=== PATIENT | female | born 1965 | race Caucasian/White ===

== ENCOUNTER 2017-06-24 12:03 | Emergency (ER) | payer BC, MEDICAID ==
[2017-06-24 12:38] VITALS: BP 151/86
[2017-06-24] MEDS ORDERED: diphenhydrAMINE 50 MG/ML SDV IVPUSH ONE (13:15)
[2017-06-24] MEDS ORDERED: Prochlorperazine 10 MG/2 ML SDV IVPUSH ONE (13:15)
[2017-06-24] MEDS ORDERED: Ketorolac 30 MG/ML SDV IVPUSH ONE (13:15)
[2017-06-24] MEDS ORDERED: Sodium Chloride 0.9% 10 ML Syringe FLUSH PRN (13:15)
[2017-06-24] MEDS ORDERED: Sodium Chloride 0.9% 1,000 ML IV SCH (13:15)
--- NOTE | 2017-06-24 13:22 | EDM.PDOC ---
ED HPI GENERAL MEDICAL PROBLEM - General Chief Complaint: Back Pain or Injury Stated Complaint: BACK SPASMS Time Seen by Provider: 06/24/17 12:55 Source of Information: Reports: Patient, Provider, RN Notes Reviewed History Limitations: Reports: No Limitations - History of Present Illness INITIAL COMMENTS - FREE TEXT/NARRATIVE: 51-year-old female presents emergency department today complaint of migraine type headache and back spasms she does have a history of chronic back pain follows at the pain clinic is on a pain contract was evaluated by her primary care this morning. I also discussed the case with Dr. Arellano her primary care. Inform me that she is currently out of her narcotic medications she does have new prescriptions written for but her insurance will not fill untell end of the month. Her main complaint is migraine type headache which is typical for her she does have photophobia and nausea usually takes triptan which has not provided any relief Back Pain Score (Numeric/FACES): 9 - Related Data Allergies Allergy/AdvReac Type Severity Reaction Status Date / Time iron Allergy Rash Verified 06/24/17 12:38 Sulfa (Sulfonamide Allergy Rash Verified 06/24/17 12:38 Antibiotics) piroxicam AdvReac Vomiting Verified 06/24/17 12:38 Home Meds: Home Meds Hydrocodone/Acetaminophen [[place] 10-325] 1 - 2 tab PO Q6HR PRN 03/04/13 [History ] Multivitamin with Minerals [Multiple Vitamin] 1 tab PO DAILY 03/04/13 [History] Spironolactone [Aldactone] 25 mg PO DAILY 03/04/13 [History] Vitamin B Complex [B Complex] 1 mg PO DAILY 03/04/13 [History] ZOLMitriptan [Zomig] 2.5 mg PO ASDIRECTED PRN 05/26/13 [History] Carisoprodol [Soma] 350 mg PO TID PRN 06/22/14 [History] Docusate Sodium/Sennosides [Senokot-S] 1 - 2 each PO BEDTIME PRN #100 tablet [Rx] Acetaminophen/Caffeine [Excedrin Tension Headache] 1 tab PO BID PRN 03/08/15 [ History] Naproxen Sodium [Aleve] 440 mg PO BID PRN 03/08/15 [History] Magnesium Oxide 400 mg PO DAILY 06/05/15 [History] Calcium+Iron 1 tab PO DAILY 11/06/15 [History] Gabapentin [Gabapentin] 100 mg PO BID 11/17/15 [History] Past Medical History HEENT History: Reports: Impaired Vision Other HEENT History: wears contacts Cardiovascular History: Reports: Heart Murmur, Hypertension, Other (See Below) Other Cardiovascular History: rhuematic fever hx, leg edema Respiratory History: Reports: Bronchitis, Recurrent Gastrointestinal History: Reports: Cholelithiasis, Diverticulosis Other Gastrointestinal History: diverticulosis on ct CORN BREEDER History: Reports: , Other (See Below) Other OB/BYN History: preeclamsia x2 pregnancies Musculoskeletal History: Reports: Arthritis, Back Pain, Chronic, Fracture, Other (See Below) Other Musculoskeletal History: Previous lumbar decompression L4-L5. Multiple back injections, epidurals, nerve tip ablation. rotator cuff surgery .Laser surgery on back Nov Neurological History: Reports: Concussion, Migraines, Seizure Endocrine/Metabolic History: Reports: Diabetes, Type II Hematologic History: Reports: Anemia, Blood Transfusion(s), Iron Deficiency, Other (See Below) Other Hematologic History: antibodies in blood Dermatologic History: Reports: Other (See Below) Other Dermatologic History: cracking of hands - Infectious Disease History Infectious Disease History: Reports: Chicken Pox, Rheumatic Fever - Past Surgical History GI Surgical History: Reports: Bariatric Procedure, Cholecystectomy, Colonoscopy Female Surgical History: Reports: Section, Tubal Ligation Musculoskeletal Surgical History: Reports: Arthroscopic Knee, Shoulder Surgery Social & Family History - Tobacco Use Smoking Status *Q: Never Smoker Second Hand Smoke Exposure: No - Caffeine Use Caffeine Use: Reports: Soda - Alcohol Use Days Per Week of Alcohol Use: 1 Number of Drinks Per Day: 1 Total Drinks Per Week: 1 - Recreational Drug Use Recreational Drug Use: No ED ROS GENERAL - Review of Systems Review Of Systems: See Below Constitutional: Denies: Fever, Chills HEENT: Reports: Eye Pain Respiratory: Reports: No Symptoms Cardiovascular: Reports: No Symptoms GI/Abdominal: Reports: Nausea : Reports: No Symptoms Musculoskeletal: Reports: Back Pain, Other (Muscle spasms) Skin: Reports: No Symptoms Neurological: Reports: No Symptoms - Physical Exam Exam: See Below Exam Limited By: No Limitations General Appearance: Alert, WD/WN, No Apparent Distress Eye Exam: Bilateral Eye: Normal Fundi, Normal Inspection Respiratory/Chest: No Respiratory Distress Course - Vital Signs Last Recorded V/S: Last Vital Signs Temp 96.5 F 06/24/17 12:35 Pulse 80 06/24/17 12:35 Resp 15 06/24/17 12:35 BP 151/86 H 06/24/17 12:35 Pulse Ox 99 06/24/17 12:35 - Orders/Labs/Meds Orders: Active Orders 24 hr Category Date Time Status Peripheral IV Care [RC] . DIRECTED Care 06/24/17 13:16 Active Sodium Chloride 0.9% [Normal Saline] 1,000 ml Med 06/24/17 13:15 Active IV ASDIRECTED Sodium Chloride 0.9% [Saline Flush] Med 06/24/17 13:15 Active 10 ml FLUSH ASDIRECTED PRN Peripheral IV Insertion Adult [OM.PC] Urgent Oth 06/24/17 13:15 Ordered Medication Orders Sodium Chloride (Normal Saline) 1,000 mls @ 500 mls/hr IV ASDIRECTED SHELLI Last Admin: 06/24/17 13:43 Dose: 500 mls/hr Sodium Chloride (Saline Flush) 10 ml FLUSH ASDIRECTED PRN PRN Reason: Keep Vein Open Last Admin: 06/24/17 13:42 Dose: 10 ml Meds: Medications Generic Name Dose Route Start Last Admin Trade Name Freq PRN Reason Stop Dose Admin Sodium Chloride 1,000 mls @ 500 mls/hr 06/24/17 13:15 06/24/17 13:43 Normal Saline IV 500 mls/hr ASDIRECTED SHELLI Administration Sodium Chloride 10 ml 06/24/17 13:15 06/24/17 13:42 Saline Flush FLUSH 10 ml ASDIRECTED PRN Administration Keep Vein Open Discontinued Medications Generic Name Dose Route Start Last Admin Trade Name Freq PRN Reason Stop Dose Admin Carisoprodol 350 mg 06/24/17 13:15 06/24/17 13:44 Soma PO 06/24/17 13:16 350 mg ONETIME ONE Administration Diphenhydramine HCl 25 mg 06/24/17 13:15 06/24/17 13:43 Benadryl IVPUSH 06/24/17 13:16 25 mg ONETIME ONE Administration Ketorolac Tromethamine 30 mg 06/24/17 13:15 06/24/17 13:44 Toradol IVPUSH 06/24/17 13:16 30 mg ONETIME ONE Administration Prochlorperazine Edisylate 5 mg 06/24/17 13:15 06/24/17 13:43 Compazine IVPUSH 06/24/17 13:16 5 mg ONETIME ONE Administration Departure - Departure Time of Disposition: 14:21 Disposition: Home, Self-Care 01 Condition: Good Clinical Impression: Migraine Qualifiers: Migraine type: without aura Status migrainosus presence: without status migrainosus Intractability: not intractable Qualified Code(s): G43.009 - Migraine without aura, not intractable, without status migrainosus - Discharge Information Referrals: Jorge Arellano MD [Primary Care Provider] - Forms: ED Department Discharge Additional Instructions: Continue regular medications, Please followup with your primary care provider in 3-5 days if not better, please call return to the emergency department with worsening of symptoms. - My Orders Last 24 Hours: My Active Orders 06/24/17 13:15 Sodium Chloride 0.9% [Normal Saline] 1,000 ml IV ASDIRECTED Sodium Chloride 0.9% [Saline Flush] 10 ml FLUSH ASDIRECTED PRN Peripheral IV Insertion Adult [OM.PC] Urgent 06/24/17 13:16 Peripheral IV Care [RC] . DIRECTED - Assessment/Plan Last 24 Hours: My Active Orders 06/24/17 13:15 Sodium Chloride 0.9% [Normal Saline] 1,000 ml IV ASDIRECTED Sodium Chloride 0.9% [Saline Flush] 10 ml FLUSH ASDIRECTED PRN Peripheral IV Insertion Adult [OM.PC] Urgent 06/24/17 13:16 Peripheral IV Care [RC] . DIRECTED Plan: Assessment Acuity = acute on chronic Site and laterality = migraine type headache Etiology = unclear etiology Manifestations = none Location of injury = Home Lab values = none Plan She had good improvement with combination Toradol, Benadryl, Compazine and 1 L of lactated Ringer's, 1 doses soma, plan follow-up primary care as needed This note was dictated using [employer] voice recognition software please call with any questions on syntax or yonatan.
== END 2017-06-24 14:37 | disposition home or self-care (01) ==
LOC: JP.ED 12:03
DX: G43.009 Migraine without aura, not intractable, without status migrainosus (principal); I10 Essential (primary) hypertension; E11.9 Type 2 diabetes mellitus without complications; Z98.890 Other specified postprocedural states; Z90.49 Acquired absence of other specified parts of digestive tract; Z98.84 Bariatric surgery status; Z79.899 Other long term (current) drug therapy; Z88.2 Allergy status to sulfonamides; Z88.8 Allergy status to other drugs, medicaments and biological substances
CPT/HCPCS: 99283; A9270; J0780; J1200; J1885; J7040; J7050

== ENCOUNTER 2018-11-16 07:30 | Day surgery (SDC) | payer BC ==
[2018-11-16] MEDS ORDERED: Lactated Ringers 1,000 ML IV SCH (08:15)
[2018-11-16] MEDS ORDERED: Propofol 200 MG/20 ML SDV ONE ×2 (09:15→10:19)
[2018-11-16] MEDS ORDERED: Midazolam 1 MG/ML 2 ML SDV ONE (09:16)
[2018-11-16] MEDS ORDERED: fentaNYL 100 MCG/2 ML SDV ONE (09:16)
[2018-11-16 11:34] VITALS: BP 161/99; PULSE 61
--- NOTE | 2018-11-16 15:22 | OR ---
DATE OF PROCEDURE: 11/16/2018 PREOPERATIVE DIAGNOSIS: Colon cancer screening. POSTOPERATIVE DIAGNOSIS: Diverticulosis. PROCEDURE: Colonoscopy to the cecum. ANESTHESIA: IV anesthesia with monitored anesthesia care. SURGEON: Marquise Wills MD INDICATION: This 53-year-old white female is referred for a colonoscopy. This is her first colonoscopic exam. I counseled her for the procedure including risks and alternatives, and she gave her informed consent to proceed. DESCRIPTION OF PROCEDURE: The patient was placed in the left lateral decubitus position. IV anesthesia was administered by the Anesthesia Service. Time-out was held. A rectal exam was performed, which was unremarkable. The flexible video Olympus colonoscope was introduced through her anus, up her rectum and out her colon all the way to the cecum. En route, we saw a few scattered left-sided diverticula. There was no bleeding or inflammation associated with them. Once the cecum was reached, the scope was slowly withdrawn examining the mucosa throughout. No additional mucosal abnormalities were noted. The scope was retroflexed in the rectum with the distal rectum appearing unremarkable. The scope was straightened and removed. She tolerated the procedure well. Marquise Wills MD /[id number] MTDD
== END 2018-11-16 11:55 | disposition home or self-care (01) ==
LOC: JP.SDS 07:30
PROVIDERS: ATTEND Surgery
DX: Z12.11 Encounter for screening for malignant neoplasm of colon (principal); K57.30 Diverticulosis of large intestine without perforation or abscess without bleeding; K21.9 Gastro-esophageal reflux disease without esophagitis; E66.9 Obesity, unspecified; M19.90 Unspecified osteoarthritis, unspecified site; Z88.2 Allergy status to sulfonamides; Z88.8 Allergy status to other drugs, medicaments and biological substances; Z68.30 Body mass index [BMI] 30.0-30.9, adult
CPT/HCPCS: 45378; J2250; J2704; J3010; J7120

== ENCOUNTER 2021-01-18 17:58 | Emergency (ER) | payer MEDICARE ==
[2021-01-18] MEDS ORDERED: Sodium Chloride 0.9% 10 ML Syringe FLUSH PRN (18:29)
[2021-01-18] MEDS ORDERED: Sodium Chloride 0.9% 1,000 ML IV SCH (18:30)
[2021-01-18 18:53] VITALS: BP 147/89; PULSE 55
--- NOTE | 2021-01-18 19:30 | EDM.PDOC ---
ED HPI GENERAL MEDICAL PROBLEM - General Chief Complaint: General Stated Complaint: MISSED IV APPT TODAY Time Seen by Provider: 01/18/21 18:18 Source of Information: Reports: Patient, Old Records History Limitations: Reports: No Limitations - History of Present Illness INITIAL COMMENTS - FREE TEXT/NARRATIVE: Edson is a 55-year-old female presenting to the ED for evaluation of marked progression and generalized weakness. The patient has a history of gastric bypass with a Ya-en-Y many years ago and is developing significant malabsorption with dangerously low levels of vitamin B12, zinc, vitamin A, 25hydroxy vitamin D3 and 25hydroxy vitamin D2, iron, and copper. She has been receiving infusions of the vitamin B12, vitamin D, and copper this week, but despite this has become increasingly weak. She was scheduled to have a copper infusion today but could not get out of bed and missed that infusion. She does have an appointment tomorrow with a neurologist at [facility] in [place]. She was advised by the clinic to come to the ER for evaluation because of the significant progression of her generalized weakness. Does appear in the [facility] note that she had to have the assist of 2 nurses to make it from the infusion chair to the bathroom and was unable to even pivot on her own. - Related Data Allergies Allergy/AdvReac Type Severity Reaction Status Date / Time iron Allergy Rash Verified 01/18/21 18:24 Sulfa (Sulfonamide Allergy Rash Verified 01/18/21 18:24 Antibiotics) venlafaxine Allergy Itching Verified 01/18/21 18:24 piroxicam AdvReac Vomiting Verified 01/18/21 18:24 Home Meds: Home Meds Multivitamin with Minerals [Multiple Vitamin] 1 tab PO DAILY 03/04/13 [History] Vitamin B Complex [B Complex] 1 tab PO DAILY 03/04/13 [History] ZOLMitriptan [Zomig] 2.5 mg PO ASDIRECTED PRN 05/26/13 [History] Ondansetron [Zofran ODT] 4 - 8 mg PO Q4H PRN 01/20/18 [History] Calcium Citrate/Vitamin D3 [Calcium Citrate - Vit D Tablet] 1 tab PO DAILY 11/16/18 [History] Clotrimazole [Clotrimazole 1%] 1 applic TOP BID 11/16/18 [History] Gabapentin [Neurontin] 300 mg PO ASDIRECTED 11/16/18 [History] Acetaminophen/HYDROcodone [[place] 325-5 MG] 1 tab PO Q6HR PRN 08/05/19 [History] Cyclobenzaprine [Flexeril] 10 mg PO TID PRN 10/03/20 [History] Sennosides/Docusate Sodium [Senna-S 8.6-50 mg Tablet] 2 each PO BID 10/03/20 [History] Past Medical History HEENT History: Reports: Impaired Vision Other HEENT History: wears contacts Cardiovascular History: Reports: Heart Murmur, Hypertension, Other (See Below) Other Cardiovascular History: rhuematic fever hx, leg edema Respiratory History: Reports: Bronchitis, Recurrent Gastrointestinal History: Reports: Cholelithiasis, Chronic Constipation, Diverticulosis Other Gastrointestinal History: diverticulosis on ct Genitourinary History: Reports: None PHARMACOVIGILANCE SCIENTIST History: Reports: , Other (See Below) Other PHARMACOVIGILANCE SCIENTIST History: preeclamsia x2 pregnancies Musculoskeletal History: Reports: Arthritis, Back Pain, Chronic, Fracture, Other (See Below) Other Musculoskeletal History: Previous lumbar decompression L4-L5. Multiple back injections, epidurals, nerve tip ablation. rotator cuff surgery .Laser surgery on back Nov Neurological History: Reports: Concussion, Migraines, Seizure Psychiatric History: Reports: None Endocrine/Metabolic History: Reports: Diabetes, Type II, Obesity/BMI 30+ Hematologic History: Reports: Anemia, Blood Transfusion(s), Iron Deficiency, Other (See Below) Other Hematologic History: antibodies in blood Immunologic History: Reports: None Oncologic (Cancer) History: Reports: None Dermatologic History: Reports: Cellulitis, Other (See Below) Other Dermatologic History: cracking of hands - Infectious Disease History Infectious Disease History: Reports: Chicken Pox, Rheumatic Fever - Past Surgical History HEENT Surgical History: Reports: Tonsillectomy GI Surgical History: Reports: Bariatric Procedure, Cholecystectomy, Colonoscopy, EGD Other GI Surgeries/Procedures: RNY Female Surgical History: Reports: Section, Tubal Ligation Neurological Surgical History: Reports: Other (See Below) Other Neurological Surgeries/Procedures: spinal stimulator Musculoskeletal Surgical History: Reports: Arthroscopic Knee, Shoulder Surgery Social & Family History - Family History Family Medical History: No Pertinent Family History - Tobacco Use Tobacco Use Status *Q: Never Tobacco User - Caffeine Use Caffeine Use: Reports: None - Recreational Drug Use Recreational Drug Use: No ED ROS GENERAL - Review of Systems Review Of Systems: See Below Constitutional: Reports: Weakness (Progressive generalized weakness), Fatigue, Decreased Appetite HEENT: Reports: No Symptoms Respiratory: Reports: No Symptoms Cardiovascular: Reports: Dyspnea on Exertion Endocrine: Reports: Fatigue GI/Abdominal: Reports: Anorexia, Decreased Appetite, Other (History of gastric bypass with a Ya-en-Y) : Reports: No Symptoms Musculoskeletal: Reports: No Symptoms Skin: Reports: Pallor Neurological: Reports: Confusion (Episodes of confusion), Difficulty Walking (Unable to stand or walk), Weakness (Profound generalized weakness) Psychiatric: Reports: Anxiety, Confusion Hematologic/Lymphatic: Reports: Anemia ED EXAM, GENERAL - Physical Exam Exam: See Below Exam Limited By: No Limitations General Appearance: Alert, Anxious, Lethargic, Mild Distress, Cachetic Eye Exam: Bilateral Eye: EOMI, PERRL Nose: Normal Inspection Throat/Mouth: No Airway Compromise, Other (Very dry mucous membranes) Head: Atraumatic, Normocephalic Neck: Normal Inspection, Supple, Lymphadenopathy (R) (Shotty right anterior cervical adenopathy). No: Lymphadenopathy (L) Respiratory/Chest: No Respiratory Distress, Lungs Clear, Normal Breath Sounds Cardiovascular: Normal Peripheral Pulses, Regular Rate, Rhythm, No Murmur Peripheral Pulses: 2+: Radial (L), Radial (R), Posterior Tibial (L), Posterior Tibial (R) GI/Abdominal: Soft, Abnormal Bowel Sounds (Diminished bowel sounds). No: Guarding, Rebound Extremities: Pedal Edema (Lymphedema in the legs) Neurological: Alert, Oriented, Normal Cognition, Abnormal Reflexes (Markedly diminished reflexes in both the lower and upper extremities.), Sensory/Motor Deficit (Significant bilateral upper extremity weakness only able to keep the arms off the bed for 4 seconds before drifting downward. Patient is unable to lift her legs off the bed.) Psychiatric: Anxious Skin Exam: Warm, No Rash, Pallor Course - Vital Signs Last Recorded V/S: Last Vital Signs Temp 34.1 C L 01/18/21 18:22 Pulse 55 L 01/18/21 18:53 Resp 16 01/18/21 18:22 BP 147/89 H 01/18/21 18:53 Pulse Ox 98 01/18/21 18:53 - Orders/Labs/Meds Orders: Active Orders 24 hr Category Date Time Status COPPER, SERUM OR PLASMA Stat Lab 01/18/21 18:54 Received VITAMIN A, SERUM Stat Lab 01/18/21 18:54 Received VITAMIN D,25-HYDROXY [CHEM] Stat Lab 01/18/21 18:55 Received ZINC, PLASMA OR SERUM Stat Lab 01/18/21 18:54 Received Sodium Chloride 0.9% [Normal Saline] 1,000 ml Med 01/18/21 18:30 Active IV ASDIRECTED Sodium Chloride 0.9% [Saline Flush] Med 01/18/21 18:29 Active 10 ml FLUSH ASDIRECTED PRN Saline Lock Insert [OM.PC] Routine Oth 01/18/21 18:29 Ordered Medication Orders Sodium Chloride (Normal Saline) 1,000 mls @ 999 mls/hr IV ASDIRECTED SHELLI Last Admin: 01/18/21 18:59 Dose: 999 mls/hr Documented by: JONATHAN Sodium Chloride (Sodium Chloride 0.9% 10 Ml Syringe) 10 ml FLUSH ASDIRECTED PRN PRN Reason: Keep Vein Open Last Admin: 01/18/21 19:00 Dose: 10 ml Documented by: JONATHAN Labs: Laboratory Tests 01/18/21 01/18/21 01/18/21 Range/Units 18:53 18:53 18:54 WBC 2.1 L (4.5-11.0) K/uL RBC 3.74 (3.30-5.50) M/uL Hgb 9.9 L (12.0-15.0) g/dL Hct 33.7 L (36.0-48.0) % MCV 90 (80-98) fL MCH 27 (27-31) pg MCHC 29 L (32-36) % Plt Count 122 L (150-400) K/uL Neut % (Auto) 67.7 H (36-66) % Lymph % (Auto) 17.1 L (24-44) % [place] % (Auto) 10.4 H (2-6) % Eos % (Auto) 4.3 H (2-4) % Baso % (Auto) 0.5 (0-1) % ESR 10 (0-25) mm/hr Sodium (140-148) mmol/L Potassium (3.6-5.2) mmol/L Chloride (100-108) mmol/L Carbon Dioxide (21-32) mmol/L Anion Gap (5.0-14.0) mmol/L BUN (7-18) mg/dL Creatinine (0.6-1.0) mg/dL Est Cr Clr Drug Dosing mL/min Estimated GFR (MDRD) (>60) Glucose (74-106) mg/dL Lactic Acid (0.4-2.0) mmol/L Calcium (8.5-10.1) mg/dL Iron (50-170) ug/dL TIBC (250-450) ug/dl % Saturation (20-55) % Total Bilirubin (0.2-1.0) mg/dL AST (15-37) U/L ALT (12-78) U/L Alkaline Phosphatase (46-116) U/L C-Reactive Protein (0.0-0.3) mg/dL Total Protein (6.4-8.2) g/dL Albumin (3.4-5.0) g/dL Globulin (2.3-3.5) g/dL Albumin/Globulin Ratio (1.2-2.2) Vitamin B12 (193-986) pg/ml Folate (8.6-58.9) ng/ml TSH, Ultra Sensitive (0.358-3.740) uIU/mL Urine Color Yellow (YELLOW) Urine Appearance Clear (CLEAR) Urine pH 6.0 (5.0-8.0) Ur Specific [place] 1.025 (1.008-1.030) Urine Protein Negative (NEGATIVE) mg/dL Urine Glucose (UA) Negative (NEGATIVE) mg/dL Urine Ketones Negative (NEGATIVE) mg/dL Urine Occult Blood Negative (NEGATIVE) Urine Nitrite Negative (NEGATIVE) Urine Bilirubin Negative (NEGATIVE) Urine Urobilinogen 0.2 (0.2-1.0) EU/dL Ur Leukocyte Esterase Negative (NEGATIVE) Urine RBC 0-5 (0-5) Urine WBC 0-5 (0-5) Ur Epithelial Cells Rare Amorphous Sediment Few Urine Bacteria Few Urine Mucus Not seen SARS-CoV-2 RNA ([place]) Negative (NEGATIVE) 01/18/21 01/18/21 01/18/21 Range/Units 18:54 18:54 18:54 WBC (4.5-11.0) K/uL RBC (3.30-5.50) M/uL Hgb (12.0-15.0) g/dL Hct (36.0-48.0) % MCV (80-98) fL MCH (27-31) pg MCHC (32-36) % Plt Count (150-400) K/uL Neut % (Auto) (36-66) % Lymph % (Auto) (24-44) % [place] % (Auto) (2-6) % Eos % (Auto) (2-4) % Baso % (Auto) (0-1) % ESR (0-25) mm/hr Sodium 145 (140-148) mmol/L Potassium 3.3 L (3.6-5.2) mmol/L Chloride 109 H (100-108) mmol/L Carbon Dioxide 29 (21-32) mmol/L Anion Gap 10.3 (5.0-14.0) mmol/L BUN 13 D (7-18) mg/dL Creatinine 0.4 L (0.6-1.0) mg/dL Est Cr Clr Drug Dosing 134.55 mL/min Estimated GFR (MDRD) > 60 (>60) Glucose 100 (74-106) mg/dL Lactic Acid 0.5 (0.4-2.0) mmol/L Calcium 9.1 (8.5-10.1) mg/dL Iron 53 (50-170) ug/dL TIBC 408 (250-450) ug/dl % Saturation 13 L (20-55) % Total Bilirubin 0.3 (0.2-1.0) mg/dL AST 170 H D (15-37) U/L ALT 240 H (12-78) U/L Alkaline Phosphatase 105 (46-116) U/L C-Reactive Protein 0.27 (0.0-0.3) mg/dL Total Protein 5.7 L (6.4-8.2) g/dL Albumin 3.0 L (3.4-5.0) g/dL Globulin 2.7 (2.3-3.5) g/dL Albumin/Globulin Ratio 1.1 L (1.2-2.2) Vitamin B12 > 2000 H (193-986) pg/ml Folate > 20.0 (8.6-58.9) ng/ml TSH, Ultra Sensitive (0.358-3.740) uIU/mL Urine Color (YELLOW) Urine Appearance (CLEAR) Urine pH (5.0-8.0) Ur Specific [place] (1.008-1.030) Urine Protein (NEGATIVE) mg/dL Urine Glucose (UA) (NEGATIVE) mg/dL Urine Ketones (NEGATIVE) mg/dL Urine Occult Blood (NEGATIVE) Urine Nitrite (NEGATIVE) Urine Bilirubin (NEGATIVE) Urine Urobilinogen (0.2-1.0) EU/dL Ur Leukocyte Esterase (NEGATIVE) Urine RBC (0-5) Urine WBC (0-5) Ur Epithelial Cells Amorphous Sediment Urine Bacteria Urine Mucus SARS-CoV-2 RNA ([place]) (NEGATIVE) 01/18/21 Range/Units 19:26 WBC (4.5-11.0) K/uL RBC (3.30-5.50) M/uL Hgb (12.0-15.0) g/dL Hct (36.0-48.0) % MCV (80-98) fL MCH (27-31) pg MCHC (32-36) % Plt Count (150-400) K/uL Neut % (Auto) (36-66) % Lymph % (Auto) (24-44) % [place] % (Auto) (2-6) % Eos % (Auto) (2-4) % Baso % (Auto) (0-1) % ESR (0-25) mm/hr Sodium (140-148) mmol/L Potassium (3.6-5.2) mmol/L Chloride (100-108) mmol/L Carbon Dioxide (21-32) mmol/L Anion Gap (5.0-14.0) mmol/L BUN (7-18) mg/dL Creatinine (0.6-1.0) mg/dL Est Cr Clr Drug Dosing mL/min Estimated GFR (MDRD) (>60) Glucose (74-106) mg/dL Lactic Acid (0.4-2.0) mmol/L Calcium (8.5-10.1) mg/dL Iron (50-170) ug/dL TIBC (250-450) ug/dl % Saturation (20-55) % Total Bilirubin (0.2-1.0) mg/dL AST (15-37) U/L ALT (12-78) U/L Alkaline Phosphatase (46-116) U/L C-Reactive Protein (0.0-0.3) mg/dL Total Protein (6.4-8.2) g/dL Albumin (3.4-5.0) g/dL Globulin (2.3-3.5) g/dL Albumin/Globulin Ratio (1.2-2.2) Vitamin B12 (193-986) pg/ml Folate (8.6-58.9) ng/ml TSH, Ultra Sensitive 1.591 (0.358-3.740) uIU/mL Urine Color (YELLOW) Urine Appearance (CLEAR) Urine pH (5.0-8.0) Ur Specific [place] (1.008-1.030) Urine Protein (NEGATIVE) mg/dL Urine Glucose (UA) (NEGATIVE) mg/dL Urine Ketones (NEGATIVE) mg/dL Urine Occult Blood (NEGATIVE) Urine Nitrite (NEGATIVE) Urine Bilirubin (NEGATIVE) Urine Urobilinogen (0.2-1.0) EU/dL Ur Leukocyte Esterase (NEGATIVE) Urine RBC (0-5) Urine WBC (0-5) Ur Epithelial Cells Amorphous Sediment Urine Bacteria Urine Mucus SARS-CoV-2 RNA ([place]) (NEGATIVE) Meds: Medications Generic Name Dose Route Start Last Admin Trade Name Freq PRN Reason Stop Dose Admin Sodium Chloride 1,000 mls @ 999 mls/hr 01/18/21 18:30 01/18/21 18:59 Normal Saline IV 999 mls/hr ASDIRECTED SHELLI Administration Sodium Chloride 10 ml 01/18/21 18:29 01/18/21 19:00 Sodium Chloride 0.9% 10 Ml Syringe FLUSH 10 ml ASDIRECTED PRN Administration Keep Vein Open - Re-Assessments/Exams Free Text/Narrative Re-Assessment/Exam: 01/18/21 21:26 the patient's labs which are troubling with her CBC showing a leukocyte count of 2.1, hemoglobin of 9.9, hematocrit of 33.7 and a platelet count of 122,000. Her comprehensive metabolic panel shows a sodium 145, potassium 3.3, chloride of 109, bicarbonate of 29, BUN of 13 with a creatinine of 0.4 and a glucose of 100. The AST is 170 with an ALT of 240 and alkaline phosphatase of 105. Venous lactic acid is 0.5. Erythrocyte sedimentation rate is 10 with a C-reactive protein of 0.27. The iron is 53 with a TIBC of 408 and a percent saturation of 13. Vitamin B12 is greater than 2000. Folate is greater than 20. TSH is 1.591 and Covid is negative. Urinalysis is also unremarkable. Zinc and calcium are pending as they are send outs. The patient has significant progressive generalized weakness over the course of the last 6 weeks to the point now where she is having difficulty even getting up off the bed. I initially planned on trying to find placement for her at one of the tertiary care centers where neurology would be able to evaluate her more expediently. The patient does have an appointment with [facility] in [place] tomorrow with a neurologist. As this is not an acute weakness, I did discuss with her options including going home in order so that she can make that appointment. Currently there are no beds available at any facility within 100 miles of [place] due to COVID-19. The patient agrees with the thought of going home and following up tomorrow with neurology. I concur that that is probably her best option at this time. Alternatively we would board her in the emergency room and telemetry bed became available which could be anywhere from 12 hours to multiple days given the bed status at the other hospitals. I did discuss with the patient indications to return to the ED for reevaluation. Departure - Departure Time of Disposition: 21:30 Disposition: Home, Self-Care 01 Clinical Impression: Generalized muscle weakness, History of Ya-en-Y gastric bypass Malabsorption Qualifiers: Intestinal malabsorption type: unspecified Qualified Code(s): K90.9 - Intestinal malabsorption, unspecified - Discharge Information Referrals: Jorge Arellano MD [Primary Care Provider] - Forms: ED Department Discharge Care Plan Goals: Follow-up tomorrow with your neurologist at [place]. Sepsis Event Note (ED) - Evaluation Sepsis Screening Result: No Definite Risk - Focused Exam Vital Signs: Vital Signs Temp Pulse Resp BP Pulse Ox 01/18/21 18:53 55 L 147/89 H 98 01/18/21 18:22 34.1 C L 59 L 16 156/84 H 98 01/18/21 18:18 34.1 C L 59 L 16 156/84 H 98 - Problem List & Annotations (1) Generalized muscle weakness SNOMED Code(s): 65747256, 95221920 Code(s): M62.81 - MUSCLE WEAKNESS (GENERALIZED) Status: Acute Priority: High Current Visit: Yes (2) History of Ya-en-Y gastric bypass SNOMED Code(s): 763590980 Code(s): Z98.84 - BARIATRIC SURGERY STATUS Status: Acute Priority: High Current Visit: Yes (3) Malabsorption SNOMED Code(s): 442146261 Code(s): K90.9 - INTESTINAL MALABSORPTION, UNSPECIFIED Status: Acute Priority: High Current Visit: Yes Qualifiers: Intestinal malabsorption type: unspecified Qualified Code(s): K90.9 - Intestinal malabsorption, unspecified - Problem List Review Problem List Initiated/Reviewed/Updated: Yes - My Orders Last 24 Hours: My Active Orders 01/18/21 18:29 Sodium Chloride 0.9% [Saline Flush] 10 ml FLUSH ASDIRECTED PRN Saline Lock Insert [OM.PC] Routine 01/18/21 18:30 Sodium Chloride 0.9% [Normal Saline] 1,000 ml IV ASDIRECTED 01/18/21 18:54 COPPER, SERUM OR PLASMA Stat VITAMIN A, SERUM Stat ZINC, PLASMA OR SERUM Stat 01/18/21 18:55 VITAMIN D,25-HYDROXY [CHEM] Stat - Assessment/Plan Last 24 Hours: My Active Orders 01/18/21 18:29 Sodium Chloride 0.9% [Saline Flush] 10 ml FLUSH ASDIRECTED PRN Saline Lock Insert [OM.PC] Routine 01/18/21 18:30 Sodium Chloride 0.9% [Normal Saline] 1,000 ml IV ASDIRECTED 01/18/21 18:54 COPPER, SERUM OR PLASMA Stat VITAMIN A, SERUM Stat ZINC, PLASMA OR SERUM Stat 01/18/21 18:55 VITAMIN D,25-HYDROXY [CHEM] Stat
== END 2021-01-19 03:26 | disposition home or self-care (01) ==
LOC: JP.ED 17:58
DX: K90.9 Intestinal malabsorption, unspecified (principal); I10 Essential (primary) hypertension; E11.9 Type 2 diabetes mellitus without complications; E66.9 Obesity, unspecified; Z68.23 Body mass index [BMI] 23.0-23.9, adult; Z79.899 Other long term (current) drug therapy; Z91.048 Other nonmedicinal substance allergy status; Z88.2 Allergy status to sulfonamides; Z20.822 Contact with and (suspected) exposure to COVID-19; Z98.84 Bariatric surgery status
CPT/HCPCS: 80053; 81001; 82306; 82525; 82607; 82746; 83550; 83605; 84443; 84590; 84630; 85025; 85651; 86140; 99284; J7030; U0002

== ENCOUNTER 2021-01-20 16:27 | Emergency (ER) | payer MEDICARE ==
--- NOTE | 2021-01-20 17:54 | EDM.PDOC ---
ED HPI GENERAL MEDICAL PROBLEM - General Chief Complaint: General Stated Complaint: MEDICAL VIA [facility] Time Seen by Provider: 01/20/21 18:29 - History of Present Illness INITIAL COMMENTS - FREE TEXT/NARRATIVE: 55 y/o female with a one year history of progressive weakness and confusion. Presents here by EMS. Accompanied by son who provides history. EMS attendants reports house is dirty, unsanitary and rodent infested. Pt unable to walk or transfer without assistance x 1 year. Decreased oral intake x 2 days. Seen here on 01/18. W/U shows leukopenia and elevated transaminase. Hx of hepatic steatosis. [place] problems were complex and in part due to malabsorption. Getting IV infusions of iron, copper and other minerals for one week without improvement. Recommended workup by tertiary care center, but due to bed shortage no acceptance was found within 100 miles of [place]. Pt had neuro appt in on Friday, but missed it due to weakness. Pt is vaccinated for covid and tested negative on 01/18. Treatments AUDIO VISUAL DIRECTOR: Reports: Heat Therapy - Related Data Allergies Allergy/AdvReac Type Severity Reaction Status Date / Time iron Allergy Rash Verified 01/18/21 18:24 Sulfa (Sulfonamide Allergy Rash Verified 01/18/21 18:24 Antibiotics) venlafaxine Allergy Itching Verified 01/18/21 18:24 piroxicam AdvReac Vomiting Verified 01/18/21 18:24 Home Meds: Home Meds Multivitamin with Minerals [Multiple Vitamin] 1 tab PO DAILY 03/04/13 [History] Vitamin B Complex [B Complex] 1 tab PO DAILY 03/04/13 [History] Ondansetron [Zofran ODT] 4 - 8 mg PO Q4H PRN 01/20/18 [History] Calcium Citrate/Vitamin D3 [Calcium Citrate - Vit D Tablet] 1 tab PO DAILY 11/16/18 [History] Clotrimazole [Clotrimazole 1%] 1 applic TOP TID PRN 11/16/18 [History] Gabapentin [Neurontin] 300 mg PO DAILY 11/16/18 [History] Acetaminophen/HYDROcodone [May 325-5 MG] 1 tab PO Q6HR PRN 08/05/19 [History] Cyclobenzaprine [Flexeril] 10 mg PO TID PRN 10/03/20 [History] Sennosides/Docusate Sodium [Senna-S 8.6-50 mg Tablet] 2 tab PO BID 10/03/20 [History] Ergocalciferol (Vitamin D2) [Vitamin D2] 1,250 mcg PO .MWF 01/18/21 [History] Folic Acid 5 mg PO DAILY 01/18/21 [History] Gabapentin [Neurontin] 600 mg PO BEDTIME 01/18/21 [History] ZOLMitriptan [Zomig] 5 mg PO ASDIRECTED PRN 01/18/21 [History] Past Medical History HEENT History: Reports: Impaired Vision Other HEENT History: wears contacts Cardiovascular History: Reports: Heart Murmur, Hypertension, Other (See Below) Other Cardiovascular History: rhuematic fever hx, leg edema Respiratory History: Reports: Bronchitis, Recurrent Gastrointestinal History: Reports: Cholelithiasis, Chronic Constipation, Diverticulosis Other Gastrointestinal History: diverticulosis on ct Genitourinary History: Reports: None COMPUTER SYSTEMS DESIGN ANALYST History: Reports: , Other (See Below) Other COMPUTER SYSTEMS DESIGN ANALYST History: preeclamsia x2 pregnancies Musculoskeletal History: Reports: Arthritis, Back Pain, Chronic, Fracture, Other (See Below) Other Musculoskeletal History: Previous lumbar decompression L4-L5. Multiple back injections, epidurals, nerve tip ablation. rotator cuff surgery 06/08/15.Laser surgery on back Nov Neurological History: Reports: Concussion, Migraines, Seizure Psychiatric History: Reports: None Endocrine/Metabolic History: Reports: Diabetes, Type II, Obesity/BMI 30+ Hematologic History: Reports: Anemia, Blood Transfusion(s), Iron Deficiency, Other (See Below) Other Hematologic History: antibodies in blood Immunologic History: Reports: None Oncologic (Cancer) History: Reports: None Dermatologic History: Reports: Cellulitis, Other (See Below) Other Dermatologic History: cracking of hands - Infectious Disease History Infectious Disease History: Reports: Chicken Pox, Rheumatic Fever - Past Surgical History Head Surgeries/Procedures: Reports: None HEENT Surgical History: Reports: Tonsillectomy Cardiovascular Surgical History: Reports: None Respiratory Surgical History: Reports: None GI Surgical History: Reports: Bariatric Procedure, Cholecystectomy, Colonoscopy, EGD Other GI Surgeries/Procedures: RNY Female Surgical History: Reports: Section, Tubal Ligation Endocrine Surgical History: Reports: None Neurological Surgical History: Reports: Other (See Below) Other Neurological Surgeries/Procedures: spinal stimulator Musculoskeletal Surgical History: Reports: Arthroscopic Knee, Shoulder Surgery Oncologic Surgical History: Reports: None Social & Family History - Family History Family Medical History: No Pertinent Family History - Tobacco Use Tobacco Use Status *Q: Never Tobacco User - Caffeine Use Caffeine Use: Reports: None - Recreational Drug Use Recreational Drug Use: No ED ROS GENERAL - Review of Systems Review Of Systems: See Below Reason Not Obtained: The patient is confused. Constitutional: Reports: Chills, Fatigue, Decreased Appetite. Denies: Fever HEENT: Reports: No Symptoms Respiratory: Reports: No Symptoms Cardiovascular: Reports: No Symptoms GI/Abdominal: Denies: Nausea, Vomiting : Reports: No Symptoms Neurological: Reports: Confusion, Difficulty Walking, Weakness ED EXAM, GENERAL - Physical Exam Exam: See Below Exam Limited By: Altered Mental Status General Appearance: Other (chilled. initial scanned temp 95. Vitals otherwise ok.) Throat/Mouth: Other (Tongue is smooth and glossy) Neck: Normal Inspection, Supple, Non-Tender, Full Range of Motion Respiratory/Chest: No Respiratory Distress, Lungs Clear Cardiovascular: Other (frequent ectopics) GI/Abdominal: Normal Bowel Sounds, Soft, Non-Tender Neurological: Other (proximal and distal muscle weakness) Psychiatric: Other (confused) Skin Exam: Other (skin is dirty and smeared with feces. ) Course - Vital Signs Text/Narrative:: The patient was assessed. Vital signs reveal hypothermia with a rectal temp of 93F. Her HR, RR, BP and O2 sat were normal, but she was confused. She has bilateral and generalized motor weakness. IV fluids, given and Bear Hugger applied. Labs ordered including blood and urine cultures. Imaging ordered including NCCT head and chest xr. She had a leukopenia, hypokalemia and abn urine. Images were unremarkable. ECG shows atrial fibrillation, probably new onset. CHADS Vasc score is 2 and stroke risk is elevated. HAS-BLED score is 1 and 3.4% risk of major bleeding. Ceftriaxone 1 gm IV given. Case discussed with Dr Rodriguez, hospitalist at [facility] and he accepted the patient in transfer. Tried to contact son (Clinton Carpenter) without success. Pt transferred in stable condition to [facility] by ground EMS. She had Covid vaccines and tested negative on 01/18. Last Recorded V/S: Last Vital Signs Temp 34.6 C L 01/20/21 20:07 Pulse 118 H 01/20/21 20:07 Resp 23 H 01/20/21 20:07 BP 140/78 01/20/21 20:07 Pulse Ox 97 01/20/21 20:07 - Orders/Labs/Meds Orders: Active Orders 24 hr Category Date Time Status Chest 1V Frontal [CR] Stat Exams 01/20/21 18:20 Taken CULTURE URINE [RM] Stat Lab 01/20/21 19:27 Received LEAD, BLOOD (ADULT) Routine Lab 01/20/21 18:31 Received cefTRIAXone [Rocephin] 1 gm Med 01/20/21 20:00 Active Sodium Chloride 0.9% [Normal Saline] 50 ml IV Q24H EKG 12 Lead [EK] Routine Ther 01/20/21 18:19 Ordered Medication Orders Ceftriaxone Sodium 1 gm/ (Sodium Chloride) 50 mls @ 100 mls/hr IV Q24H SHELLI Last Admin: 01/20/21 20:06 Dose: 100 mls/hr Documented by: BRANDEN Labs: Laboratory Tests 01/20/21 01/20/21 01/20/21 Range/Units 18:35 18:35 18:35 WBC 3.3 L (4.5-11.0) K/uL RBC 3.99 (3.30-5.50) M/uL Hgb 10.3 L (12.0-15.0) g/dL Hct 35.2 L (36.0-48.0) % MCV 88 (80-98) fL MCH 26 L (27-31) pg MCHC 29 L (32-36) % Plt Count 121 L (150-400) K/uL Neut % (Auto) 86.5 H (36-66) % Lymph % (Auto) 9.3 L (24-44) % Brooke % (Auto) 3.3 (2-6) % Eos % (Auto) 0.9 L (2-4) % Baso % (Auto) 0.0 (0-1) % PT (9.2-10.6) sec INR Sodium 145 (140-148) mmol/L Potassium 3.0 L (3.6-5.2) mmol/L Chloride 110 H (100-108) mmol/L Carbon Dioxide 27 (21-32) mmol/L Anion Gap 11.0 (5.0-14.0) mmol/L BUN 7 (7-18) mg/dL Creatinine 0.3 L (0.6-1.0) mg/dL Est Cr Clr Drug Dosing 179.40 mL/min Estimated GFR (MDRD) > 60 (>60) Glucose 74 (74-106) mg/dL Lactic Acid (0.4-2.0) mmol/L Calcium 8.9 (8.5-10.1) mg/dL Total Bilirubin 0.3 (0.2-1.0) mg/dL AST 123 H (15-37) U/L ALT 212 H (12-78) U/L Alkaline Phosphatase 104 (46-116) U/L Total Protein 5.2 L (6.4-8.2) g/dL Albumin 2.7 L (3.4-5.0) g/dL Globulin 2.5 (2.3-3.5) g/dL Albumin/Globulin Ratio 1.1 L (1.2-2.2) Procalcitonin < 0.05 ng/mL Urine Color (YELLOW) Urine Appearance (CLEAR) Urine pH (5.0-8.0) Ur Specific [place] (1.008-1.030) Urine Protein (NEGATIVE) mg/dL Urine Glucose (UA) (NEGATIVE) mg/dL Urine Ketones (NEGATIVE) mg/dL Urine Occult Blood (NEGATIVE) Urine Nitrite (NEGATIVE) Urine Bilirubin (NEGATIVE) Urine Urobilinogen (0.2-1.0) EU/dL Ur Leukocyte Esterase (NEGATIVE) Urine RBC (0-5) Urine WBC (0-5) Ur Epithelial Cells Amorphous Sediment Urine Bacteria Urine Mucus Urinalysis Comment Urine Opiates Screen (NEGATIVE) Ur Oxycodone Screen (NEGATIVE) Urine Methadone Screen (NEGATIVE) Ur Propoxyphene Screen (NEGATIVE) Ur Barbiturates Screen (NEGATIVE) Ur Tricyclics Screen (NEGATIVE) Ur Phencyclidine Scrn (NEGATIVE) Ur Amphetamine Screen (NEGATIVE) U Methamphetamines Scrn (NEGATIVE) Urine MDMA Screen (NEGATIVE) U Benzodiazepines Scrn (NEGATIVE) U Cocaine Metab Screen (NEGATIVE) U Marijuana (THC) Screen (NEGATIVE) 01/20/21 01/20/21 01/20/21 Range/Units 18:35 18:35 19:27 WBC (4.5-11.0) K/uL RBC (3.30-5.50) M/uL Hgb (12.0-15.0) g/dL Hct (36.0-48.0) % MCV (80-98) fL MCH (27-31) pg MCHC (32-36) % Plt Count (150-400) K/uL Neut % (Auto) (36-66) % Lymph % (Auto) (24-44) % Brooke % (Auto) (2-6) % Eos % (Auto) (2-4) % Baso % (Auto) (0-1) % PT 12.4 H (9.2-10.6) sec INR 1.2 Sodium (140-148) mmol/L Potassium (3.6-5.2) mmol/L Chloride (100-108) mmol/L Carbon Dioxide (21-32) mmol/L Anion Gap (5.0-14.0) mmol/L BUN (7-18) mg/dL Creatinine (0.6-1.0) mg/dL Est Cr Clr Drug Dosing mL/min Estimated GFR (MDRD) (>60) Glucose (74-106) mg/dL Lactic Acid 0.8 (0.4-2.0) mmol/L Calcium (8.5-10.1) mg/dL Total Bilirubin (0.2-1.0) mg/dL AST (15-37) U/L ALT (12-78) U/L Alkaline Phosphatase (46-116) U/L Total Protein (6.4-8.2) g/dL Albumin (3.4-5.0) g/dL Globulin (2.3-3.5) g/dL Albumin/Globulin Ratio (1.2-2.2) Procalcitonin ng/mL Urine Color Yellow (YELLOW) Urine Appearance Slightly cloudy A (CLEAR) Urine pH 5.5 (5.0-8.0) Ur Specific [place] 1.020 (1.008-1.030) Urine Protein Negative (NEGATIVE) mg/dL Urine Glucose (UA) Negative (NEGATIVE) mg/dL Urine Ketones Trace H (NEGATIVE) mg/dL Urine Occult Blood Trace-intact H (NEGATIVE) Urine Nitrite Positive H (NEGATIVE) Urine Bilirubin Negative (NEGATIVE) Urine Urobilinogen 0.2 (0.2-1.0) EU/dL Ur Leukocyte Esterase Trace H (NEGATIVE) Urine RBC 0-5 (0-5) Urine WBC 10-20 H (0-5) Ur Epithelial Cells Occasional Amorphous Sediment Occasional Urine Bacteria Many Urine Mucus Few Urinalysis Comment See note Urine Opiates Screen (NEGATIVE) Ur Oxycodone Screen (NEGATIVE) Urine Methadone Screen (NEGATIVE) Ur Propoxyphene Screen (NEGATIVE) Ur Barbiturates Screen (NEGATIVE) Ur Tricyclics Screen (NEGATIVE) Ur Phencyclidine Scrn (NEGATIVE) Ur Amphetamine Screen (NEGATIVE) U Methamphetamines Scrn (NEGATIVE) Urine MDMA Screen (NEGATIVE) U Benzodiazepines Scrn (NEGATIVE) U Cocaine Metab Screen (NEGATIVE) U Marijuana (THC) Screen (NEGATIVE) 01/20/21 Range/Units 19:27 WBC (4.5-11.0) K/uL RBC (3.30-5.50) M/uL Hgb (12.0-15.0) g/dL Hct (36.0-48.0) % MCV (80-98) fL MCH (27-31) pg MCHC (32-36) % Plt Count (150-400) K/uL Neut % (Auto) (36-66) % Lymph % (Auto) (24-44) % Brooke % (Auto) (2-6) % Eos % (Auto) (2-4) % Baso % (Auto) (0-1) % PT (9.2-10.6) sec INR Sodium (140-148) mmol/L Potassium (3.6-5.2) mmol/L Chloride (100-108) mmol/L Carbon Dioxide (21-32) mmol/L Anion Gap (5.0-14.0) mmol/L BUN (7-18) mg/dL Creatinine (0.6-1.0) mg/dL Est Cr Clr Drug Dosing mL/min Estimated GFR (MDRD) (>60) Glucose (74-106) mg/dL Lactic Acid (0.4-2.0) mmol/L Calcium (8.5-10.1) mg/dL Total Bilirubin (0.2-1.0) mg/dL AST (15-37) U/L ALT (12-78) U/L Alkaline Phosphatase (46-116) U/L Total Protein (6.4-8.2) g/dL Albumin (3.4-5.0) g/dL Globulin (2.3-3.5) g/dL Albumin/Globulin Ratio (1.2-2.2) Procalcitonin ng/mL Urine Color (YELLOW) Urine Appearance (CLEAR) Urine pH (5.0-8.0) Ur Specific [place] (1.008-1.030) Urine Protein (NEGATIVE) mg/dL Urine Glucose (UA) (NEGATIVE) mg/dL Urine Ketones (NEGATIVE) mg/dL Urine Occult Blood (NEGATIVE) Urine Nitrite (NEGATIVE) Urine Bilirubin (NEGATIVE) Urine Urobilinogen (0.2-1.0) EU/dL Ur Leukocyte Esterase (NEGATIVE) Urine RBC (0-5) Urine WBC (0-5) Ur Epithelial Cells Amorphous Sediment Urine Bacteria Urine Mucus Urinalysis Comment Urine Opiates Screen Presumptive positive H (NEGATIVE) Ur Oxycodone Screen Negative (NEGATIVE) Urine Methadone Screen Negative (NEGATIVE) Ur Propoxyphene Screen Negative (NEGATIVE) Ur Barbiturates Screen Negative (NEGATIVE) Ur Tricyclics Screen Presumptive positive H (NEGATIVE) Ur Phencyclidine Scrn Negative (NEGATIVE) Ur Amphetamine Screen Negative (NEGATIVE) U Methamphetamines Scrn Negative (NEGATIVE) Urine MDMA Screen Negative (NEGATIVE) U Benzodiazepines Scrn Negative (NEGATIVE) U Cocaine Metab Screen Negative (NEGATIVE) U Marijuana (THC) Screen Negative (NEGATIVE) Meds: Medications Generic Name Dose Route Start Last Admin Trade Name Freq PRN Reason Stop Dose Admin Ceftriaxone Sodium 1 gm/ 50 mls @ 100 mls/hr 01/20/21 20:00 01/20/21 20:06 Sodium Chloride IV 100 mls/hr Q24H SHELLI Administration Discontinued Medications Generic Name Dose Route Start Last Admin Trade Name Freq PRN Reason Stop Dose Admin Potassium Chloride 20 meq/ 100 mls @ 50 mls/hr 01/20/21 19:17 01/20/21 19:46 Premix IV 01/20/21 21:16 50 mls/hr ONETIME ONE Administration Potassium Chloride 20 meq 01/20/21 19:17 01/20/21 19:46 Potassium Chloride 20 Meq Tab.Er PO 01/20/21 19:18 20 meq ONETIME ONE Administration Departure - Departure Time of Disposition: 21:26 Disposition: DC/Tfer to Acute Hospital 02 Condition: Fair Clinical Impression: Sepsis, UTI (urinary tract infection), Generalized weakness - Discharge Information Referrals: PCP,None [Primary Care Provider] - Forms: ED Department Discharge Sepsis Event Note (ED) - Focused Exam Vital Signs: Vital Signs Temp Pulse Resp BP Pulse Ox 01/20/21 20:07 34.6 C L 118 H 23 H 140/78 97 01/20/21 18:28 35.8 C L 76 120/86 01/20/21 17:01 35.5 C L 66 18 118/88 98 - My Orders Last 24 Hours: My Active Orders 01/20/21 18:19 EKG 12 Lead [EK] Routine 01/20/21 18:20 Chest 1V Frontal [CR] Stat 01/20/21 18:31 LEAD, BLOOD (ADULT) Routine 01/20/21 19:27 CULTURE URINE [RM] Stat 01/20/21 20:00 cefTRIAXone [Rocephin] 1 gm Sodium Chloride 0.9% [Normal Saline] 50 ml IV Q24H - Assessment/Plan Last 24 Hours: My Active Orders 01/20/21 18:19 EKG 12 Lead [EK] Routine 01/20/21 18:20 Chest 1V Frontal [CR] Stat 01/20/21 18:31 LEAD, BLOOD (ADULT) Routine 01/20/21 19:27 CULTURE URINE [RM] Stat 01/20/21 20:00 cefTRIAXone [Rocephin] 1 gm Sodium Chloride 0.9% [Normal Saline] 50 ml IV Q24H
[2021-01-20] MEDS ORDERED: Potassium Chloride 20 MEQ Tab.ER PO ONE (19:17)
[2021-01-20] MEDS ORDERED: Potassium Chloride 20 MEQ in Premix Bag 1 BAG IV ONE (19:17)
--- NOTE | 2021-01-20 19:33 | CRLCT ---
For Patients: As a result of the Century Cures Act, medical imaging exams and procedure reports are released immediately into your electronic medical record. You may view this report before your referring provider. If you have questions, please contact your health care provider. Indication: Confusion. Technique: Multiple contiguous axial images were obtained from the skullbase to the vertex without intravenous contrast enhancement. Please note that all CT scans at this facility use dose modulation, iterative reconstruction, and/or weight-based dosing when appropriate to reduce radiation dose to as low as reasonably achievable. Comparison: August 01, 2020. Findings: The ventricles are symmetric and normal in size morphology. The basal cisterns are widely patent. No intra-axial or extra-axial hemorrhage is identified. No mass, mass effect or midline shift is seen. The bony calvarium is intact. The visualized paranasal sinuses and mastoid air cells are clear. Impression: No acute intracranial process. Please note that all CT scans at this facility use dose modulation, iterative reconstruction, and/or weight-based dosing when appropriate to reduce radiation dose to as low as reasonably achievable. Dictated by Alma Thomson MD @ 01/20/2021 7:31:19 PM (Electronically Signed)
[2021-01-20] MEDS ORDERED: cefTRIAXone 1 GM in Sodium Chloride 0.9% 50 ML IV SCH (20:00)
[2021-01-20 20:09] VITALS: BP 140/78; PULSE 118
--- NOTE | 2021-01-22 10:11 | CR ---
CHEST: Portable 14/09/2020 at 6:58 PM CLINICAL HISTORY:Cough COMPARISON:2013 FINDINGS: The heart size, pulmonary vascularity and hilar structures are normal. No infiltrate effusion or pneumothorax is seen. There are atherosclerotic changes in the aorta. IMPRESSION: No acute cardiopulmonary process.
== END 2021-01-20 23:00 ==
LOC: JP.ED 16:27
DX: A41.9 Sepsis, unspecified organism (principal); N39.0 Urinary tract infection, site not specified; I10 Essential (primary) hypertension; E11.9 Type 2 diabetes mellitus without complications; E66.9 Obesity, unspecified; Z68.43 Body mass index [BMI] 50.0-59.9, adult; Z88.2 Allergy status to sulfonamides; Z91.048 Other nonmedicinal substance allergy status; Z88.8 Allergy status to other drugs, medicaments and biological substances
CPT/HCPCS: 70450; 71045; 80053; 80305; 81001; 83605; 83655; 84145; 85025; 85610; 87086; 87088; 87186; 93005; 96365; 96366; 96368; 99285; A9270; J0696; J3480; 36415

== ENCOUNTER 2021-10-01 10:00 | Inpatient (IN) | payer MEDICARE ==
[2021-10-01] MEDS ORDERED: Lactated Ringers 1,000 ML IV SCH (11:00)
[2021-10-01 11:48] LABS: ESTIMATED GFR > 60 (>60); TROPONIN I HIGH SENSITIVITY 16.3 pg/mL (<=60.3)
[2021-10-01 12:23] LABS: CORONAVIRUS COVID-19 NAA NEGATIVE (NEGATIVE)
[2021-10-01] MEDS ORDERED: Lactated Ringers 1,000 ML IV ONE (13:34)
[2021-10-01] MEDS ORDERED: Sodium Chloride 0.9% 100 ML IV ONE (13:49)
[2021-10-01] MEDS ORDERED: Sodium Chloride 0.9% 10 ML Syringe FLUSH PRN (13:49)
[2021-10-01] MEDS ORDERED: Iopamidol 755 Mg/ML 100 ML Bottle IV SCH (14:00)
[2021-10-01] MEDS ORDERED: Cyanocobalamin (Vitamin B12) 1,000 MCG/ML SDV IM ONE (16:17)
[2021-10-01] MEDS ORDERED: [UNRECOGNIZED DRUG - OTHER] IV ONE ×5 (17:00)
[2021-10-01] MEDS ORDERED: MVI IV ONE ×5 (17:00)
[2021-10-01] MEDS ORDERED: MAGNESIUM SULFATE IV ONE ×5 (17:00)
[2021-10-01] MEDS ORDERED: THIAMINE IV ONE ×5 (17:00)
[2021-10-01] MEDS ORDERED: VITAMIN K IV ONE ×5 (17:00)
[2021-10-01] MEDS ORDERED: Loperamide 2 MG Cap PO SCH (17:45)
[2021-10-01] MEDS ORDERED: Acetaminophen 325 MG Tab, 50 Tab Bulk Bottle PO SCH (17:45)
[2021-10-01] MEDS ORDERED: Non-Formulary Medication 1 Each (Polyvinyl Alcohol/Povidone/Pf [Refresh Classic Eye Drops] EYEBOTH SCH (17:45)
[2021-10-01] MEDS: Trospium 20 MG Tab PO SCH (21:10)
[2021-10-02] MEDS: Vitamin B Complex Tab PO SCH (08:38)
[2021-10-02] MEDS: Trospium 20 MG Tab PO SCH ×2 (08:38→20:37)
[2021-10-02] MEDS: Potassium Chloride 20 MEQ Tab.ER PO SCH (08:38)
[2021-10-02] MEDS: amLODIPine 5 MG Tab PO SCH (08:38)
[2021-10-02] MEDS: Calcium Carbonate/Vitamin D3 1500 MG-400 Units Tab PO SCH (08:38)
[2021-10-02] MEDS: Multivitamins with Iron/Calcium/Folic Acid/Minerals Tab PO SCH (08:39)
[2021-10-02] MEDS: Cyanocobalamin (Vitamin B12) 1,000 MCG Tab PO SCH (08:39)
[2021-10-02] MEDS ORDERED: Cyanocobalamin (Vitamin B12) 1,000 MCG/ML SDV IM ONE (09:00)
[2021-10-02] MEDS ORDERED: Thiamine 200 MG in Sodium Chloride 0.9% 100 ML IV ONE (09:00)
[2021-10-02] MEDS: Vitamin A 100,000 Units/2 ML SDV IM SCH (10:22)
[2021-10-02] MEDS: Cupric Chloride 2 MG in Sodium Chloride 0.9% 250 ML IV SCH (11:52)
[2021-10-02] MEDS ORDERED: Loperamide 2 MG Cap PO PRN (12:15)
[2021-10-02] MEDS: Melatonin 3 MG Tab PO SCH (20:37)
[2021-10-02] MEDS: Hypromellose 0.3% Ophth Soln 15 ML Bottle EYEBOTH SCH (20:38)
[2021-10-03 06:43] LABS: ESTIMATED GFR > 60 (>60)
[2021-10-03] MEDS: Potassium Chloride 20 MEQ Tab.ER PO SCH (08:17)
[2021-10-03] MEDS: Hypromellose 0.3% Ophth Soln 15 ML Bottle EYEBOTH SCH ×2 (08:17→20:53)
[2021-10-03] MEDS: Calcium Carbonate/Vitamin D3 1500 MG-400 Units Tab PO SCH (08:17)
[2021-10-03] MEDS: Trospium 20 MG Tab PO SCH ×2 (08:18→20:54)
[2021-10-03] MEDS: amLODIPine 5 MG Tab PO SCH (08:18)
[2021-10-03] MEDS: Multivitamins with Iron/Calcium/Folic Acid/Minerals Tab PO SCH (08:19)
[2021-10-03] MEDS: Vitamin B Complex Tab PO SCH (08:19)
[2021-10-03] MEDS: Cyanocobalamin (Vitamin B12) 1,000 MCG Tab PO SCH (08:19)
[2021-10-03] MEDS ORDERED: Ergocalciferol (Vitamin D2) 1.25 MG Cap PO SCH (09:00)
[2021-10-03] MEDS ORDERED: Gadoteridol 279.3 MG/ML 20 ML SDV IV SCH (11:00)
[2021-10-03] MEDS: Vitamin A 100,000 Units/2 ML SDV IM SCH (11:38)
[2021-10-03] MEDS: Cupric Chloride 2 MG in Sodium Chloride 0.9% 250 ML IV SCH (11:39)
[2021-10-03] MEDS ORDERED: Magnesium Hydroxide 400 MG/5 ML Susp 30 ML Cup PO PRN (15:51)
[2021-10-03] MEDS: Melatonin 3 MG Tab PO SCH (20:53)
[2021-10-03] MEDS: Acetaminophen 325 MG Tab PO PRN (20:54)
[2021-10-04] MEDS: Acetaminophen 325 MG Tab PO PRN (02:02)
[2021-10-04 05:21] LABS: ESTIMATED GFR > 60 (>60)
[2021-10-04] MEDS ORDERED: Cupric Chloride 2 MG in Sodium Chloride 0.9% 250 ML IV SCH (08:00)
[2021-10-04 08:15] VITALS: BP 111/79; PULSE 68
[2021-10-04] MEDS: Cyanocobalamin (Vitamin B12) 1,000 MCG Tab PO SCH (09:17)
[2021-10-04] MEDS: Potassium Chloride 20 MEQ Tab.ER PO SCH (09:17)
[2021-10-04] MEDS: Calcium Carbonate/Vitamin D3 1500 MG-400 Units Tab PO SCH (09:17)
[2021-10-04] MEDS: Multivitamins with Iron/Calcium/Folic Acid/Minerals Tab PO SCH (09:17)
[2021-10-04] MEDS: amLODIPine 5 MG Tab PO SCH (09:18)
[2021-10-04] MEDS: Vitamin B Complex Tab PO SCH (09:18)
[2021-10-04] MEDS: Trospium 20 MG Tab PO SCH (09:18)
[2021-10-04] MEDS: Hypromellose 0.3% Ophth Soln 15 ML Bottle EYEBOTH SCH (09:19)
[2021-10-04] MEDS: Vitamin A 100,000 Units/2 ML SDV IM SCH (09:35)
[2021-10-05 09:10] LABS: ANA DIRECT Negative (Negative)
== END 2021-10-04 09:45 | disposition home or self-care (01) | DRG 71 ==
LOC: JP.ED 10:00 → JP.MS 17:38
PROVIDERS: ADMIT Surgery; ATTEND Surgery
DX: G93.41 Metabolic encephalopathy (principal); K91.2 Postsurgical malabsorption, not elsewhere classified; R41.82 Altered mental status, unspecified; M62.50 Muscle wasting and atrophy, not elsewhere classified, unspecified site; H54.7 Unspecified visual loss; Z20.822 Contact with and (suspected) exposure to COVID-19; D50.9 Iron deficiency anemia, unspecified; I10 Essential (primary) hypertension; E66.9 Obesity, unspecified; E11.9 Type 2 diabetes mellitus without complications; M19.90 Unspecified osteoarthritis, unspecified site; M54.9 Dorsalgia, unspecified; G89.29 Other chronic pain; K59.09 Other constipation; K57.90 Diverticulosis of intestine, part unspecified, without perforation or abscess without bleeding; E63.8 Other specified nutritional deficiencies; E61.1 Iron deficiency; Z90.49 Acquired absence of other specified parts of digestive tract; Z88.2 Allergy status to sulfonamides; Z88.8 Allergy status to other drugs, medicaments and biological substances; Z98.84 Bariatric surgery status; Z99.3 Dependence on wheelchair; Z79.899 Other long term (current) drug therapy; Z68.30 Body mass index [BMI] 30.0-30.9, adult
CPT/HCPCS: 0241U; 36415; 70450; 70496; 70553; 80053; 80305; 81001; 82140; 82306; 82525; 82607; 82728; 83605; 83690; 83735; 84100; 84443; 84484; 84590; 84630; 85025; 86038; 86140; 96361; 96365; 96372; 97163; 97530; 99285; A9270-GY; A9579; J3411; J3420; J3475; J3490; J7050; J7120; Q9967

== ENCOUNTER 2021-10-11 14:28 | Inpatient (IN) | payer MEDICARE ==
[2021-10-11] MEDS ORDERED: Sodium Chloride 0.9% 500 ML IV SCH (15:30)
[2021-10-11 15:51] LABS: ESTIMATED GFR 118 mL/min (>60)
[2021-10-11] MEDS ORDERED: Loperamide 2 MG Cap PO SCH (19:58)
[2021-10-11] MEDS ORDERED: Morphine 2 MG/ML SYRINGE IVPUSH PRN (19:58)
[2021-10-11] MEDS ORDERED: Ondansetron 4 MG Tab.DIS PO PRN (19:58)
[2021-10-11] MEDS ORDERED: Non-Formulary Medication 1 Each (Polyvinyl Alcohol/Povidone/Pf [Refresh Classic Eye Drops] EYEBOTH SCH (19:58)
[2021-10-11] MEDS ORDERED: Ondansetron 4 MG/2 ML SDV IV PRN (19:58)
[2021-10-11] MEDS ORDERED: Bisacodyl 5 MG Tab PO PRN (19:58)
[2021-10-11] MEDS ORDERED: MVI, Adult with Vitamin K 10 ML, Thiamine 100 MG, Folic Acid 1 MG, Magnesium Sulfate 3 ... IV SCH ×5 (19:58)
[2021-10-11] MEDS ORDERED: Pantoprazole 40 MG Vial IV ONE (19:58)
[2021-10-11] MEDS ORDERED: Docusate Sodium 100 MG Cap PO PRN (19:58)
[2021-10-11] MEDS ORDERED: Pantoprazole 40 MG Vial IVPUSH ONE (20:15)
[2021-10-11] MEDS ORDERED: Non-Formulary Medication 1 Each (Melatonin [Melatonin] 5 MG Tablet) PO SCH (21:00)
[2021-10-11] MEDS: Sodium Chloride 0.9% 1,000 ML IV SCH (21:17)
[2021-10-11] MEDS: Trospium 20 MG Tab PO SCH (21:47)
[2021-10-12] MEDS: Sodium Chloride 0.9% 1,000 ML IV SCH (04:10)
[2021-10-12] MEDS ORDERED: Hypromellose 0.3% Ophth Soln 15 ML Bottle EYEBOTH PRN (08:16)
[2021-10-12] MEDS ORDERED: Vitamin A 10,000 Unit Cap PO SCH (09:00)
[2021-10-12] MEDS: Calcium Carbonate/Vitamin D3 1500 MG-400 Units Tab PO SCH (09:12)
[2021-10-12] MEDS: Multivitamins with Iron/Calcium/Folic Acid/Minerals Tab PO SCH (09:12)
[2021-10-12] MEDS: Vitamin B Complex Tab PO SCH (09:12)
[2021-10-12] MEDS: Ergocalciferol (Vitamin D2) 1.25 MG Cap PO SCH (09:12)
[2021-10-12] MEDS: Trospium 20 MG Tab PO SCH ×3 (09:13→21:04)
[2021-10-12] MEDS: Potassium Chloride 20 MEQ Tab.ER PO SCH (09:13)
[2021-10-12] MEDS: Cyanocobalamin (Vitamin B12) 1,000 MCG Tab PO SCH (09:13)
[2021-10-12] MEDS: amLODIPine 5 MG Tab PO SCH (09:14)
[2021-10-12] MEDS: Citalopram 20 MG Tab PO SCH (14:15)
[2021-10-12] MEDS: Melatonin 3 MG Tab PO SCH (20:48)
[2021-10-13] MEDS: Citalopram 20 MG Tab PO SCH (08:29)
[2021-10-13] MEDS: Calcium Carbonate/Vitamin D3 1500 MG-400 Units Tab PO SCH (08:30)
[2021-10-13] MEDS: Multivitamins with Iron/Calcium/Folic Acid/Minerals Tab PO SCH (08:30)
[2021-10-13] MEDS: Vitamin B Complex Tab PO SCH (08:30)
[2021-10-13] MEDS: Cyanocobalamin (Vitamin B12) 1,000 MCG Tab PO SCH (08:30)
[2021-10-13] MEDS: Trospium 20 MG Tab PO SCH (08:30)
[2021-10-13] MEDS: amLODIPine 5 MG Tab PO SCH (08:31)
[2021-10-13] MEDS: Potassium Chloride 20 MEQ Tab.ER PO SCH (08:31)
[2021-10-13] MEDS ORDERED: Haloperidol Lactate 5 MG/ML SDV IVPUSH ONE (08:52)
[2021-10-13] MEDS: COPPER GLUCONATE 2 MG PO SCH ×2 (10:29→11:23)
[2021-10-13] MEDS: Sodium Chloride 0.9% 1,000 ML IV SCH (14:24)
[2021-10-13] MEDS: Melatonin 3 MG Tab PO SCH (22:39)
[2021-10-14] MEDS: Sodium Chloride 0.9% 1,000 ML IV SCH ×2 (01:20→11:29)
[2021-10-14] MEDS: Acetaminophen 325 MG Tab PO PRN ×2 (03:52→09:10)
[2021-10-14] MEDS: oxyCODONE 5 MG Tab PO PRN (04:25)
[2021-10-14] MEDS: Potassium Chloride 20 MEQ Tab.ER PO SCH (09:05)
[2021-10-14] MEDS: Multivitamins with Iron/Calcium/Folic Acid/Minerals Tab PO SCH (09:05)
[2021-10-14] MEDS: Calcium Carbonate/Vitamin D3 1500 MG-400 Units Tab PO SCH (09:05)
[2021-10-14] MEDS: Vitamin B Complex Tab PO SCH (09:05)
[2021-10-14] MEDS: Citalopram 20 MG Tab PO SCH (09:06)
[2021-10-14] MEDS: amLODIPine 5 MG Tab PO SCH (09:06)
[2021-10-14] MEDS: Cyanocobalamin (Vitamin B12) 1,000 MCG Tab PO SCH (09:07)
[2021-10-14] MEDS: Melatonin 3 MG Tab PO SCH (21:11)
[2021-10-15] MEDS: oxyCODONE 5 MG Tab PO PRN (03:08)
[2021-10-15] MEDS: amLODIPine 5 MG Tab PO SCH (08:31)
[2021-10-15] MEDS: Ergocalciferol (Vitamin D2) 1.25 MG Cap PO SCH (08:31)
[2021-10-15] MEDS: Potassium Chloride 20 MEQ Tab.ER PO SCH (08:31)
[2021-10-15] MEDS: Calcium Carbonate/Vitamin D3 1500 MG-400 Units Tab PO SCH (08:31)
[2021-10-15] MEDS: Vitamin B Complex Tab PO SCH (08:31)
[2021-10-15] MEDS: Multivitamins with Iron/Calcium/Folic Acid/Minerals Tab PO SCH (08:31)
[2021-10-15] MEDS: Cyanocobalamin (Vitamin B12) 1,000 MCG Tab PO SCH (08:36)
[2021-10-15] MEDS: Citalopram 20 MG Tab PO SCH (08:36)
[2021-10-15] MEDS: Melatonin 3 MG Tab PO SCH (21:07)
[2021-10-16] MEDS: Acetaminophen 325 MG Tab PO PRN (03:38)
[2021-10-16] MEDS: Calcium Carbonate/Vitamin D3 1500 MG-400 Units Tab PO SCH (08:26)
[2021-10-16] MEDS: Citalopram 20 MG Tab PO SCH (08:26)
[2021-10-16] MEDS: Potassium Chloride 20 MEQ Tab.ER PO SCH (08:27)
[2021-10-16] MEDS: Multivitamins with Iron/Calcium/Folic Acid/Minerals Tab PO SCH (08:27)
[2021-10-16] MEDS: amLODIPine 5 MG Tab PO SCH (08:27)
[2021-10-16] MEDS: Cyanocobalamin (Vitamin B12) 1,000 MCG Tab PO SCH (08:28)
[2021-10-16] MEDS: Vitamin B Complex Tab PO SCH (08:28)
[2021-10-16] MEDS ORDERED: Potassium Chloride 20 MEQ Tab.ER PO SCH (09:00)
[2021-10-16 10:08] VITALS: BP 151/91; PULSE 54
== END 2021-10-16 12:06 | DRG 641 ==
LOC: JP.ED 14:28 → JP.MS 18:58 → OBSVTOIN 10-13 09:37
PROVIDERS: ADMIT Internal Medicine; ATTEND Hospitalist
DX: R41.0 Disorientation, unspecified (principal); E86.0 Dehydration; E61.8 Deficiency of other specified nutrient elements; R53.1 Weakness; E11.9 Type 2 diabetes mellitus without complications; E63.9 Nutritional deficiency, unspecified; K11.7 Disturbances of salivary secretion; G93.49 Other encephalopathy; E11.69 Type 2 diabetes mellitus with other specified complication; D50.9 Iron deficiency anemia, unspecified; T44.0X5A Adverse effect of anticholinesterase agents, initial encounter; E66.9 Obesity, unspecified; H54.7 Unspecified visual loss; Z20.822 Contact with and (suspected) exposure to COVID-19; I10 Essential (primary) hypertension; K59.09 Other constipation; K57.90 Diverticulosis of intestine, part unspecified, without perforation or abscess without bleeding; M19.90 Unspecified osteoarthritis, unspecified site; M54.9 Dorsalgia, unspecified; G89.29 Other chronic pain; G43.909 Migraine, unspecified, not intractable, without status migrainosus; D64.9 Anemia, unspecified; E61.1 Iron deficiency; Z86.19 Personal history of other infectious and parasitic diseases; Z79.899 Other long term (current) drug therapy; Z88.2 Allergy status to sulfonamides; Z98.84 Bariatric surgery status; Z88.8 Allergy status to other drugs, medicaments and biological substances; Z91.09 Other allergy status, other than to drugs and biological substances; Z90.89 Acquired absence of other organs; Z90.49 Acquired absence of other specified parts of digestive tract; Z98.51 Tubal ligation status; Z98.890 Other specified postprocedural states; Z68.33 Body mass index [BMI] 33.0-33.9, adult
CPT/HCPCS: 36415 ×2; 80048; 80053; 81001; 82140; 83735; 85025 ×2; 96360; 99285; A9270 ×19; C9113; J1630; J3411; J3475; J7030 ×4; 85027; 86140; 96361; 96365; 96366; 96375; 97110-GP; 97162-GP; G0378; J3490; U0002